=== PATIENT | male | born 1970 | race Caucasian/White ===

== ENCOUNTER 2017-02-12 22:57 | Emergency (ER) | payer OTHER ==
[~2017-02-12] VITALS: Ht 177.8 cm; Wt 108.9 kg
[~2017-02-12 22:57] MED LIST: KEFLEX500 MG PO; METHADONE; METHADONE HCL5 MG PO; NAPROSYN500 MG PO; NOHOMEMEDICATIONS
[2017-02-12] MEDS ORDERED: HYDROCODONE-AP1 EAC6 PO (23:27)
[2017-02-12] MEDS ORDERED: CLOBETASOL PROP15 G1 TOP (23:27)
[2017-02-12 23:34] VITALS: BP 157/105
== END 2017-02-12 23:35 | disposition home or self-care (01) ==
LOC: M.ERS 22:57
DX: L23.4 Allergic contact dermatitis due to dyes (principal); F17.210 Nicotine dependence, cigarettes, uncomplicated; Z98.890 Other specified postprocedural states

== ENCOUNTER 2020-04-11 13:41 | Emergency (ER) | payer BC ==
[~2020-04-11] VITALS: Ht 175.3 cm; Wt 89.8 kg
[~2020-04-11 13:41] MED LIST changes: +CLOBETASOL PROP15 G1 TOP; +HYDROCODONE-AP1 EAC6 PO
[2020-04-11 14:17] LABS: ABSOLUTE EOSINOPHILS 0.1 thou/uL (0.0-0.7); ABSOLUTE LYMPHOCYTES 0.8 thou/uL (0.8-5.3); ABSOLUTE MONOCYTES 0.5 thou/uL (0.0-1.2); ABSOLUTE NEUTROPHILS 3.9 thou/uL (1.6-8.1); BASOPHILS 0.6 %; EOSINOPHILS 1.3 %; HEMATOCRIT 39.3 % (42.0-52.0); HEMOGLOBIN 13.1 gm/dL (14.0-18.0); LYMPHOCYTES 15.9 %; MCH 26.8 pg (26.0-34.0); MCHC 33.3 g/dL (28.0-37.0); MCV 80.5 fL (80.0-100.0); MONOCYTES 8.7 %; MPV 7.1 fl. (7.2-11.1); NUCLEATED RBCS 0 /100WBC; PLATELET COUNT* 264 thou/uL (150-400); POLYS 73.5 %; RBC 4.88 mil/uL (4.50-6.00); RDW-CV 13.7 % (10.5-14.5); WBC 5.3 thou/uL (4.0-11.0)
[2020-04-11 14:27] LABS: CALCIUM 8.4 mg/dL (8.5-10.1); CREATININE 1.2 mg/dL (0.6-1.3); POTASSIUM 3.5 mmol/L (3.5-5.1)
[2020-04-11 14:37] LABS: ALBUMIN 3.5 g/dL (3.4-5.0); TOTAL BILIRUBIN 0.5 mg/dL (<0.1-1.0); TOTAL PROTEIN 6.9 g/dL (6.4-8.2)
[2020-04-11 15:12] LABS: APTT 28.2 Seconds (25.0-31.3); PROTIME 10.5 Seconds (9.20-11.50)
[2020-04-11 16:12] VITALS: BP 123/81
== END 2020-04-11 16:12 | disposition short-term general hospital (02) ==
LOC: M.ERS 13:41
PROVIDERS: Nurse Practitioner Family
DX: I62.9 Nontraumatic intracranial hemorrhage, unspecified (principal); G93.89 Other specified disorders of brain; Z20.822 Contact with and (suspected) exposure to COVID-19; F17.210 Nicotine dependence, cigarettes, uncomplicated